=== PATIENT | female | born 1990 | race Caucasian/White ===

== ENCOUNTER 2021-05-18 00:40 | Day surgery (SDC) | payer SELFPAY ==
[2021-05-17 14:19] VITALS: BMI 31.3
--- NOTE | 2021-05-17 14:28 | PC.NURSE ---
Report to the Outpatient Waiting Room, entrance under the green pavilion located off [facility], at time 1145 on date 05/18/21. OR Time: 1400. - You will be asked a series of questions to screen for COVID 19 for your protection. - A mask is required within the hospital. - No visitors are allowed at this time. Preoperative COVID Testing Requirements: RAPID COVID 05/18 AT 1145 No COVID Test needed if: (proof is required; if not received patient will have Rapid Test prior to entry) - Patient has received COVID Vaccine at least 14 days prior to procedure date or - Patient has positive COVID test result within last 90 days of surgery date. COVID Test needed if above criteria is not met If not COVID vaccinated a COVID test must be conducted within 72 hours of surgery and patient is asked to isolate self from time of testing until procedure. You will go to the [facility] for your COVID testing. The [facility] is located at the corner of [address] [facility]. You will only be called if COVID results are positive and your surgeon may reschedule your elective surgery date. Patients may have clear liquids (water, carbonated beverages, clear teas, apple juice) until 3 hours prior to surgery with a maximum of 20 ounces. - No food from midnight until time of surgery Take the following medications with a SIP of water the morning of surgery: CONTROL PILL, PAIN PILL (IF NEEDED) Medications to discontinue per physician: VITAMINS/SUPPLEMENTS Date to take last dose: NO MORE UNTIL AFTER SURGERY Please no make-up, nail yoruba, hairspray, perfume, deodorant, or body powder the day of surgery. No jewelry (including any body piercings) or valuables the day of surgery, leave them at home. Please take a shower or bath the night before, or the morning of, surgery with an antibacterial soap. Wear comfortable, loose fitting clothing. - Jewelry must be removed prior to entering the operating room. Rings and piercings that are not removed may be cut off. - The hospital will not accept responsibility for valuables. - Please leave all valuables, including medications, at home the day of surgery. If you are going home after surgery, a licensed industrial truck driver must drive you home. - NO public transportation without another adult. - We recommend that an adult stay with you for 24 hours following discharge. - We also recommend that you do not drive, make important decision, drink alcoholic beverages, or take any drugs that were not prescribed by your health care provider for at least 24 hours after your discharge time. Follow any additional instructions given to you from your surgeon. Telephone instructions given to KAREN WILKINS and asked if any additional questions and then verbalized understanding. Patient advised to call surgeon office or pre surgery nurse liaison [phone] if any additional questions.
[2021-05-18] VITALS (7 sets, daily range): BP systolic 122–143; BP diastolic 68–93; PULSE 88–99; RESP 12–18; TEMP 36.4–36.7; O2SAT 94–100; BMI 32.8
--- NOTE | ~2021-05-18 | XR_ITS ---
EXAMINATION: XR surgery orthopedic DATE: 05/18/2021 17:16 INDICATION: Distal right radius fracture. TECHNIQUE: 9 intraoperative fluoroscopic views of right wrist were obtained. I was not present. Fluor oscopy exposure time was 788 seconds. COMPARISON: Right wrist radiographs 05/17/2021 FINDINGS: There is a comminuted fracture of distal radius with internal fixation with volar plate and screws. The lateral and medial distal fracture fragments demonstrate 4 mm and 2 mm radial displaceme nt, respectively. There is a 2 mm fracture gap at the distal articular surface. IMPRESSION: 1. Comminuted fracture of distal radius status post internal fixation. Reviewed, dictated and finalized at location A. 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
--- NOTE | 2021-05-18 07:22 | WPDHPUPDATE1 ---
History and Physical Update Update Date/Time: 05/18/21 07:22 History and Physical has been reviewed, including an updated exam of the patient. There are NO changes in the patient's condition. Risks, benefits, and alternatives have been discussed and questions answered. Patient agrees to proceed with procedure.
--- NOTE | 2021-05-18 08:39 | P.PNAN_ITS ---
Anes - Initial Pre Proc Eval Procedure: Operation Date: 05/18/21 14:00 Proposed Procedures p Open Reduction Internal Fixation Right Distal Radius Fracture - Michele Montilla MD Date/Time: 05/18/21 08:39 Surgeon: Michele Montilla MD Pre Op Diagnosis: right distal radius fx Patient Data Age: 31 Gender: F Height: 1.7 m Weight: 90.72 kg Allergies Allergy/AdvReac Type Severity Reaction Status Date / Time No Known Allergies Allergy Verified 05/18/21 12:59 Home Medications Medication Instructions Recorded Confirmed Type cholecalciferol (vitamin D3) 125 125 mcg PO DAILY 05/14/21 05/18/21 History mcg (5,000 unit) capsule hydrocodone 5 mg-acetaminophen 325 1 tablet PO Q4-6H #20 tablet 05/14/21 05/18/21 Rx mg tablet drospirenone-ethinyl estradiol 1 tablet PO DAILY 05/17/21 05/18/21 History Patient hx anesthesia problems: none Family hx anesthesia problems: none Results Review: All pre-operative results and documents have been reviewed as part of the pre-operative evaluation. 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 @ [employer] Gender identity (if verbalized by the patient): Female Spiritual care concerns: No Anes - Eval Final PreProcedure Day of Procedure 05/18/21 08:39 Patient weight: obese Heart: regular rate and rhythm Lungs: clear to auscultation and normal air movement Airway: Mallampati scale class II Neurological: alert and oriented Last oral intake: >/= 8 hours ASA classification: II Emergent: no Anesthetic plan: proceed Anesthesia type and monitoring: general LMA and standard monitoring Results Review: All pre-operative results and documents have been reviewed as part of the pre-operative evaluation. Informed Consent: The patient's anesthetic plan and its attendant risks and benefits were discussed with the patient/family/POA. Questions were solicited and answers provided to the satisfaction of the patient/family/POA.
--- NOTE | 2021-05-18 08:40 | WPDANESPNB ---
Anes - Peripheral Nerve Block Date/Time: 05/18/21 08:40 I have discussed with the patient/family/POA the placement of a peripheral nerve block for post-operative pain management, including associated risks, benefits, complications, and side effects. Alternative methods of post-operative analgesia were detailed. Questions were solicited and answers provided to the satisfaction of the patient/family/POA. Time-Out: A pre-procedural Time-Out was completed immediately before starting the procedure and confirmed: Patient Identification, Site, Procedure, Patient Position and the Availability of Requisite Equipment. Clinical Indications: Acute post-operative pain management requested by the operative surgeon. Nerve Block Insertion Note Anes-nerve block: supraclavicular right Patient position: supine Skin prep: chlorhexidine Needle: 22 gauge, stimulating, insulated echogenic needle. Needle length: 50 mm Technique: ultrasound Injectate: bupivacaine 0.5% with epi 5 mcg/ml (30cc- no epi) Observations: tolerated well Complications: none Procedure start time:: 1341 Procedure end time:: 134
[2021-05-18] MEDS: CELECOXIB 200 MG CAPSULE PO (13:03)
[2021-05-18] MEDS: LACTATED RINGERS 1,000 ML 30 ML IV CONT ×2 (13:15→17:38)
--- NOTE | 2021-05-18 13:23 | SUR.PREOP ---
CALLED OR, ASKED DR FELIZ IF PT NEEDS SHAVE AND SCRUB. PT WEARING SPLINT. ELEVATED ON PILLOW
--- NOTE | 2021-05-18 13:28 | SUR.PREOP ---
HELD TYLENOL, PT TOOK VICODIN TODAY AT 1000.
--- NOTE | 2021-05-18 14:03 | SUR.PREOP ---
SURGERY WILL BE DELAYED APPROX 1-2 HOURS PER LACK OF RADIOLOGY STAFF. PT NOTIFIED.
[2021-05-18] MEDS: ceFAZolin 2 GM/D5W 50 ML 2 GM/50 ML BAG IVPB (14:17)
--- NOTE | 2021-05-18 17:53 | P.OP_ITS ---
Procedure Note - Detailed Date of Procedure 05/18/21 Pre-op Diagnosis right distal radius fx Post-op Diagnosis same Procedure Performed ORIF RIGHT DISTAL RADIUS FRACTURE Surgeon Michele Montilla MD Anesthesia general Description of Procedure THE RIGHT UPPER EXTREMITY WAS PREPPED AND DRAPED IN THE STERILE FASHION. A STANDARD HENRYS APPROACH WAS USED TO THE VOLAR WRIST. DISSECTION THROUGH THE SKIN AND SUBCUTANEOUS TISSUE WAS PREFORMED. THE FCR TENDON WAS IDENTIFIED. THE RADIAL ARTERY WAS IDENTIFIED AND RETRACTED. THE THE FLEXOR POLLICIS AND THE COMMON FLEXOR TENDONS WERE IDENTIFIED AND RETRACTED. THE PRONATOR QUADRATUS WAS IDENTIFIED AND INCISED EXPOSING THE FRACTURE. IT WAS HIGHLY COMMINUTED. A TRI AL REDUCTION WAS PREFORMED AND FIXED WITH A K WIRE. NEXT A BIOMET DISTAL RADIUS LOCKING PLATE WAS PLACED BRIDGING THE FRACTURE FRAGMENTS. SCREWS WERE PLACED DISTALLY AND PROXIMALLY. THE DISTAL SCREWS WERE IMAGED AND FOUND TO BE EXTRA ARTICULAR. C ARM IMAGES WERE PREFORMED AND HARDWARE AND FRACTURE FRAGMENTS WERE IN GOOD POSITION. THE TOURNIQUET WAS DEFLATED AND THE BLEEDERS WERE CAUTERIZED. THE FASCIA AND SUB CUTANEOUS LAYERS WERE APPROXIMATED WITH 3-0 VICRYL. THE SKIN WAS APPROXIMATED WITH KENNY. STERILE DRESSING AND SPLINT WAS APPLIED. PATIENT WAS EXTUBATED. Estimated Blood Loss 20 Complications No immediate complications Condition stable Disposition PACU
[2021-05-18] MEDS: ONDANSETRON INJ 4 MG/2 ML VIAL IV PUSH (18:04)
[2021-05-18] MEDS: SCOPOLAMINE 1.5 MG PATCH TRANSDERM (18:09)
== END 2021-05-18 19:20 | disposition home or self-care (01) ==
PROVIDERS: Visit Provider Orthopaedic Surgery
PROC: (CPT 25575; principal; 2021-05-18 14:00)
DX: S52.571A Other intraarticular fracture of lower end of right radius, initial encounter for closed fracture (principal); V86.59XA Driver of other special all-terrain or other off-road motor vehicle injured in nontraffic accident, initial encounter; G89.18 Other acute postprocedural pain; E66.9 Obesity, unspecified; Z68.32 Body mass index [BMI] 32.0-32.9, adult
CPT/HCPCS: 25608; 64415; A9270; C1713; J0690; J2250; J2405; J2704; J3010; J7120

== ENCOUNTER 2021-05-18 11:33 | Outpatient (CLI) | payer SELFPAY ==
[2021-05-18 12:06] LABS: EDCOVIDSCREEN Negative (Negative)
== END 2021-05-18 11:34 | disposition home or self-care (01) ==
LOC: ANHSURGERY 11:36
PROVIDERS: Visit Provider Orthopaedic Surgery
DX: Z01.812 Encounter for preprocedural laboratory examination (principal); Z20.822 Contact with and (suspected) exposure to COVID-19
CPT/HCPCS: 87426; C9803

== ENCOUNTER 2022-04-29 18:25 | Emergency (ER) | payer BC, SELFPAY ==
--- NOTE | 2022-04-29 18:27 | ED.WOUNDLAC ---
HPI - Wound/Laceration General Chief Complaint: Wound/Laceration Stated Complaint: laceration right hand Time Seen by Provider: 04/29/22 18:38 Source: patient and RN notes reviewed Mode of arrival: ambulatory Limitations: no limitations History of Present Illness HPI narrative: 32-year-old female presents with concern for laceration to the dorsal aspect of her right hand. Reports she was caring something a basement stairway that was too wide when she scraped her hand she believes she scraped it nail parent reports this happened just prior to arrival. She is not up-to-date on her tetanus vaccination she denies any decreased sensation, strength, range of motion in hand or digits. Related Data Home Medications Medication Instructions Recorded Confirmed cholecalciferol (vitamin D3) 125 125 mcg PO DAILY 05/14/21 04/29/22 mcg (5,000 unit) capsule drospirenone 3 mg-ethinyl 1 tablet PO DAILY 05/17/21 04/29/22 estradiol 0.02 mg tablet Allergies Allergy/AdvReac Type Severity Reaction Status Date / Time No Known Allergies Allergy Verified 04/29/22 18:27 Review of Systems Review of Systems: CONSTITUTIONAL: Denies malaise, chills, sweats, or fever. SKIN: Reports laceration to the dorsal aspect of the right hand MUSCULOSKELETAL: Denies muscle skeletal pain, decreased strength, sensation, range of motion NEUROLOGIC: Denies numbness, weakness All systems reviewed & are unremarkable except as noted in HPI and below PMFSH Surgical History Surgical History History of Family History Family History Other Arthritis Hypertension Social History Social History Alcohol intake: current Alcohol use details: 6-10/MONTH Substance use: never Substance use type: does not use Living arrangements: with family Additional living arrangements comments: SON Occupation/Education: occupation Additional occupation/education comments: [employer]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 There is no relevant family history pertinent to the presenting complaint Exam Narrative: GENERAL: Well-appearing, well-nourished, and in no acute distress. HEAD: Normocephalic EYES: PERRLA, conjunctivae clear NECK: Supple. CHEST: Speaks in full sentences. No respiratory distress. HEART: Regular rate and rhythm. Normal and equal peripheral pulses. EXTREMITIES: Right hand and digits of hand have normal strength and sensation. 5/5 strength with digit flexion, extension. Range of motion normal. No clubbing, cyanosis, or edema noted. No tenderness. Normal digital cascade with flexion of fingers, median, ulnar and radial nerve intact. Normal sensation of each side of finger. Can perform 'okay' sign, 'cross over finger test of index and middle fingers' and 'thumbs up' sign. No scissoring. Normal thumb opposition. Good capillary refill and radial pulse. Distal capillary refill less than 3 seconds. Patient is right/left hand dominant SKIN: Warn, dry, intact, pink. 1.5 cm superficial laceration noted on the dorsal aspect of the right hand, well approximated, no active bleeding NEURO: Alert and oriented x3. PSYCH: Normal mood and affect Course Course Emergency Course: Patient is aware of diagnosis, understands and agrees to treatment plan. Anticipatory guidance given. Patient agrees to follow-up as directed and is aware of reasons to seek care at the emergency department. Portions of this record may have been created with voice recognition software Level of Care: Express Care Visit Vital Signs Vital signs: Reviewed. Procedures Laceration Laceration 1: Date: 04/29/22 Time: 18:46 Site: hand
[2022-04-29 18:39] VITALS: BP 148/96; PULSE 86; RESP 18; TEMP 36.8; O2SAT 100
[2022-04-29] MEDS: TETANUS,DIPHTHERIA,AC PERTUSSIS ADULT (0.5 ML) BOOSTRIX IM (18:50)
== END 2022-04-29 18:58 | disposition home or self-care (01) ==
PROVIDERS: Emergency Provider Nurse Practitioner
DX: S61.411A Laceration without foreign body of right hand, initial encounter (principal); W45.0XXA Nail entering through skin, initial encounter; Z23 Encounter for immunization
CPT/HCPCS: 12001; 90471; 90715; 99212; G0463